=== PATIENT | male | born 2000 | race Caucasian/White ===

== ENCOUNTER 2019-10-20 | Emergency (ER) | payer OTHER ==
[2019-10-20 01:06] VITALS: BP 103/51; PULSE 76; TEMP 98.2; BMI 30.6
--- NOTE | 2019-10-20 02:51 | PDOC ---
*Physical Exam - Vital Signs Last Vital Signs Temp Pulse Resp BP Pulse Ox 98.2 F 76 16 103/51 L 98 10/20/19 00:00 10/20/19 00:00 10/20/19 00:00 10/20/19 00:00 10/20/19 00:00 Medical Decision Making - Medical Decision Making 10/20/19 02:50 Patient seen by the advanced practice provider under my supervision. Ancillary testing reviewed as necessary. I agree with plan as outlined by the advanced practice provider. Discharge - Discharge Information Problems reviewed: Yes Clinical Impression/Diagnosis: Heroin abuse Condition: Fair Disposition: HOME - Follow up/Referral - Patient Discharge Instructions Additional Instructions: you may go to [facility] detox at 8 am for check in. - Post Discharge Activity
--- NOTE | 2019-10-20 03:33 | PDOC ---
History of Present Illness - General Chief Complaint: Substance Abuse Stated Complaint: DETOX Time Seen by Provider: 10/20/19 02:48 History Source: Patient - History of Present Illness Initial Comments: 10/20/19 18-year-old male with history of heroin abuse and benzo here looking for detox. Patient reports that he has been multiple institutions for inpatient detox. Patient has no active withdrawal symptoms. Last used yesterday evening at 6 PM. Patient is here with distribution warehouse manager for potential placement. Past History - Past Medical History Allergies/Adverse Reactions: Allergies Allergy/AdvReac Type Severity Reaction Status Date / Time No Known Allergies Allergy Verified 10/20/19 01:07 - Psycho Social/Smoking Cessation Hx Smoking History: Current some day smoker Information on smoking cessation initiated: No Hx Alcohol Use: Yes *Physical Exam - Vital Signs Last Vital Signs Temp Pulse Resp BP Pulse Ox 98.2 F 76 16 103/51 L 98 10/20/19 00:00 10/20/19 00:00 10/20/19 00:00 10/20/19 00:00 10/20/19 00:00 - Physical Exam General Appearance: Yes: Appropriately Dressed Respiratory/Chest: positive: Lungs Clear, Normal Breath Sounds Cardiovascular: positive: Regular Rhythm, Regular Rate. negative: Tachycardia Musculoskeletal: positive: Other (Track gutierrez on arm no redness or or swelling) Extremity: positive: Normal Capillary Refill, Normal Inspection, Normal Range of Motion Medical Decision Making - Medical Decision Making 10/20/19 06:28 A: heroin abuse P: patient referred to detox in the AM Discharge - Discharge Information Problems reviewed: Yes Clinical Impression/Diagnosis: Heroin abuse Condition: Fair Disposition: HOME - Follow up/Referral - Patient Discharge Instructions Additional Instructions: you may go to [facility] detox at 8 am for check in. - Post Discharge Activity
== END 2019-10-20 04:12 | disposition home or self-care (01) ==
LOC: JER
DX: F11.10 Opioid abuse, uncomplicated (principal); F13.10 Sedative, hypnotic or anxiolytic abuse, uncomplicated
CPT/HCPCS: 99283-25

== ENCOUNTER 2019-10-20 10:11 | Inpatient (IN) | payer OTHER ==
[2019-10-20 10:52] VITALS: BMI 31.4
--- NOTE | 2019-10-20 11:48 | HP ---
COWS - Scale Resting Pulse: 0= [place] 80 or Below Sweatin=Flushed/Facial Moisture Restless Observation: 1= Difficult to Sit Still Pupil Size: 1= Pupils >than Normal Bone or Joint Aches: 1= Mild Discomfort Runny Nose/ Eye Tearin= Runny Nose/Eyes GI Upset > 30mins: 1= Stomach Cramp Tremor Observation: 1= Tremor [place], Not Seen Yawning Observation: 1= 1-2x During Session Anxiety or Irritability: 2=Irritable/Anxious Goose Flesh Skin: 0=Smooth Skin COWS Score: 12 CIWA Score - Admission Criteria OASAS Guidelines: Admission for Medically Managed Detox: Requires at least one of the followin. CIWA greater than 12 2. Seizures within the past 24 hours 3. Delirium tremens within the past 24 hours 4. Hallucinations within the past 24 hours 5. Acute intervention needed for co occurring medical disorder 6. Acute intervention needed for co occurring psychiatric disorder 7. Severe withdrawal that cannot be handled at a lower level of care (continued vomiting, continued diarrhea, abnormal vital signs) requiring intravenous medication and/or fluids 8. Admitting History and Physical - Admission Chief Complaint: " I want to stop using drugs." History of Present Illness: 18 year old male with history of opioid dependence attempted methadone in [facility] last there in 10/10/19. He did rehab at [facility] but then relapsed immediately, re-entered detox at [facility] and s/p discharge from there in 10/16/19. However, he immediately relapsed and started using multiple substances. Heroin: intravenously, 2 bundles per day, started using more than 1 year ago, last used yesterday at 10AM He hasn't overdosed but carries no narcan kit. POMH: None Psurg: None Psych: None Lives with his mother and is on bail for robbery case. He was brought in by his pillowcase cutter who wants it transmitted that he has a rehab termite renewal inspector placement at [facility]. This message will be transmitted to counseling who will coordinate with them upon discharge this time. History Source: Patient Limitations to Obtaining History: No Limitations - Past Surgical History Past Surgical History: Yes: None - Smoking History Smoking history: Current some day smoker Have you smoked in the past 12 months: Yes Aproximately how many cigarettes per day: 20 - Alcohol/Substance Use Hx Alcohol Use: Yes History of Substance Use: reports: Heroin Date of Last Use: 10/11/17 - Social History Usual Living Arrangement: Yes: Alone Do you think of yourself as: Straight/Heterosexual ADL: Independent Occupation: unemployed, elevator repair mechanic History of Recent Travel: No Admission [facility] Allergies/Adverse Reactions: Allergies Allergy/AdvReac Type Severity Reaction Status Date / Time No Known Allergies Allergy Verified 10/20/19 10:52 Exam Limitations: No Limitations - Ebola screening Have you traveled outside of the country in the last 21 days: No Have you had contact with anyone from an Ebola affected area: No Have you been sick,other than usual withdrawal symptoms: No Do you have a fever: No - Review of Systems Constitutional: Chills, Unintentional Wgt. Loss EENT: reports: No Symptoms Reported Respiratory: reports: No Symptoms reported Cardiac: reports: No Symptoms Reported GI: reports: No Symptoms Reported : reports: No Symptoms Reported Musculoskeletal: reports: Muscle Pain Integumentary: reports: No Symptoms Reported Neuro: reports: No Symptoms reported Endocrine: reports: No Symptoms Reported Hematology: reports: No Symptoms Reported Psychiatric: reports: Judgement Intact, Mood/Affect Appropiate, Orientated x3 Other Systems: Reviewed and Negative Patient History - Patient Medical History Hx Asthma: No Hx Chronic Obstructive Pulmonary Disease (COPD): No Hx Cardiac Disorders: No Hx Hypertension: No Hx Seizures: No Hx Diabetes: No Hx Gastrointestinal Disorders: No Hx Genitourinary Disorders: No Hx Sexually Transmitted Disorders: No Hx Renal Disease (ESRD): No Hx Depression: No Hx Suicide Attempt: No Hx Schizophrenia: No - Patient Surgical History Past Surgical History: No Hx Neurologic Surgery: No Hx Cataract Extraction: No Hx Cardiac Surgery: No Hx Lung Surgery: No Hx Breast Surgery: No Hx Breast Biopsy: No Hx Abdominal Surgery: No Hx Appendectomy: No Hx Cholecystectomy: No Hx Genitourinary Surgery: No Hx Section: No Hx Orthopedic Surgery: No Anesthesia Reaction: No - PPD History Previous Implant?: Yes Documented Results: Negative w/o proof Implanted On Prior [facility] Admission?: No Date: 03/12/19 Results: negative PPD to be Administered?: Yes - Smoking Cessation Smoking history: Current some day smoker Have you smoked in the past 12 months: Yes Aproximately how many cigarettes per day: 20 Hx Chewing Tobacco Use: No Initiated information on smoking cessation: Yes 'Breaking Loose' booklet given: 10/20/19 - Substances abused Heroin Substance route: Injection Frequency: Daily Amount used: 20bags Age of first use: 17 Date of last use: 10/19/19 Cocaine Substance route: Injection Frequency: Daily Amount used: 3bags Age of first use: 16 Date of last use: 10/20/19 Admission Physical Exam [facility] - Vital Signs Vital Signs: Vital Signs - 24 hr 10/20/19 10:49 Temperature 98.4 F Pulse Rate 68 Respiratory 18 Rate Blood Pressure 124/68 - Physical General Appearance: Yes: Moderate Distress, Tremorous, Irritable, Sweating, Anxious HEENTM: Yes: EOMI, Hearing grossly Normal, Normal ENT Inspection, Normocephalic , Normal Voice, SHENG, Pharynx Normal, Tm's normal Respiratory: Yes: Chest Non-Tender, Lungs Clear, Normal Breath Sounds, No Respiratory Distress, No Accessory Muscle Use Neck: Yes: No masses,lesions,Nodules, Supple, Trachea in good position Breast: Yes: Within Normal Limits Cardiology: Yes: Regular Rhythm, Regular Rate, S1, S2 Abdominal: Yes: Normal Bowel Sounds, Non Tender, Flat, Soft Genitourinary: Yes: Within Normal Limits Back: Yes: Normal Inspection Musculoskeletal: Yes: full range of Motion, Gait Steady, Pelvis Stable Extremities: Yes: Normal Capillary Refill, Normal Inspection, Normal Range of Motion, Non-Tender Neurological: Yes: sports editor II-XII NML intact, Fully Oriented, Alert, Motor Strength 5/5, Normal Mood/Affect, Normal Response Integumentary: Yes: Normal Color, Warm Lymphatic: Yes: Within Normal Limits - Diagnostic (1) Opioid dependence with withdrawal Current Visit: Yes Status: Acute Cleared for Admission [facility] - Detox or Rehab [facility] Level of Care: Medically Managed Detox Regimen/Protocol: Methadone Claeared for Rehab Admission: No Screened but not Admitted - Documentation of Visit Screened but not Admitted: No Breathalyzer - Breathalyzer Breathalyzer: 0 Urine Drug Screen - Test Device Lot number: [id number] Expiration date: 08/08/21 - Control Is test valid?: Yes - Results Drug screen NEGATIVE: No Urine drug screen results: THC-Marijuana, EDITH-Cocaine, FEN-Fentanyl, MOP-Opiates , MTD-Methadone, BUP-Suboxone Inpatient Rehab Admission - Rehab Decision to Admit Inpatient rehab admission?: No
[2019-10-20] MEDS ORDERED: METHOCARBAMOL 500 MG TABLET PO PRN (11:53)
[2019-10-20] MEDS ORDERED: hydrOXYzine PAMOATE 25 MG CAPSULE (FP) PO PRN (11:53)
[2019-10-20] MEDS ORDERED: MELATONIN 5 MG TABLETS PO PRN (11:53)
[2019-10-20] MEDS ORDERED: IBUPROFEN 400 MG TABLET (FP) PO PRN (11:53)
[2019-10-20] MEDS ORDERED: BISMUTH SUBSALICYLATE 524 MG/30 ML UD PO PRN (11:53)
[2019-10-20] MEDS ORDERED: MAGNESIUM CITRATE 300 ML BOTTLE PO PRN (11:53)
[2019-10-20] MEDS ORDERED: ACETAMINOPHEN 325 MG TABLET (FP) PO PRN ×2 (11:53)
[2019-10-20] MEDS ORDERED: MAG HYDROX/AL HYDROX/SIMETH 30 ML UNIT-DOSE CUP PO PRN (11:53)
[2019-10-20] MEDS ORDERED: cloNIDine HCL 0.1 MG TABLET PO PRN (11:53)
[2019-10-20] MEDS ORDERED: MAGNESIUM HYDROX 2400MG/30ML ORAL SUSPENSION 30 ML CUP PO PRN (11:53)
[2019-10-20] MEDS ORDERED: MENTHOL/PHENOL 1 EACH UD MM PRN (11:53)
--- NOTE | 2019-10-20 12:10 | HP ---
COWS - Scale Resting Pulse: 0= [place] 80 or Below Sweatin=Flushed/Facial Moisture Restless Observation: 1= Difficult to Sit Still Pupil Size: 1= Pupils >than Normal Bone or Joint Aches: 1= Mild Discomfort Runny Nose/ Eye Tearin= Runny Nose/Eyes GI Upset > 30mins: 1= Stomach Cramp Tremor Observation: 1= Tremor [place], Not Seen Yawning Observation: 1= 1-2x During Session Anxiety or Irritability: 2=Irritable/Anxious Goose Flesh Skin: 0=Smooth Skin COWS Score: 12 CIWA Score - Admission Criteria OASAS Guidelines: Admission for Medically Managed Detox: Requires at least one of the followin. CIWA greater than 12 2. Seizures within the past 24 hours 3. Delirium tremens within the past 24 hours 4. Hallucinations within the past 24 hours 5. Acute intervention needed for co occurring medical disorder 6. Acute intervention needed for co occurring psychiatric disorder 7. Severe withdrawal that cannot be handled at a lower level of care (continued vomiting, continued diarrhea, abnormal vital signs) requiring intravenous medication and/or fluids 8. Admitting History and Physical - Past Surgical History Past Surgical History: Yes: None - Smoking History Smoking history: Current some day smoker Have you smoked in the past 12 months: Yes Aproximately how many cigarettes per day: 20 - Alcohol/Substance Use Hx Alcohol Use: Yes History of Substance Use: reports: Heroin Date of Last Use: 10/11/17 - Social History ADL: Independent Occupation: unemployed, service mechanic History of Recent Travel: No Admission [facility] Allergies/Adverse Reactions: Allergies Allergy/AdvReac Type Severity Reaction Status Date / Time No Known Allergies Allergy Verified 10/20/19 10:52 - Ebola screening Have you traveled outside of the country in the last 21 days: No Have you had contact with anyone from an Ebola affected area: No Have you been sick,other than usual withdrawal symptoms: No Do you have a fever: No Patient History - Patient Medical History Hx Asthma: No Hx Chronic Obstructive Pulmonary Disease (COPD): No Hx Cardiac Disorders: No Hx Hypertension: No Hx Seizures: No Hx Diabetes: No Hx Gastrointestinal Disorders: No Hx Genitourinary Disorders: No Hx Sexually Transmitted Disorders: No Hx Renal Disease (ESRD): No Hx Depression: No Hx Suicide Attempt: No Hx Schizophrenia: No - Patient Surgical History Past Surgical History: No Hx Neurologic Surgery: No Hx Cataract Extraction: No Hx Cardiac Surgery: No Hx Lung Surgery: No Hx Breast Surgery: No Hx Breast Biopsy: No Hx Abdominal Surgery: No Hx Appendectomy: No Hx Cholecystectomy: No Hx Genitourinary Surgery: No Hx Section: No Hx Orthopedic Surgery: No Anesthesia Reaction: No - PPD History Previous Implant?: Yes Documented Results: Negative w/o proof Implanted On Prior [facility] Admission?: No Date: 03/12/19 Results: negative - Smoking Cessation Smoking history: Current some day smoker Have you smoked in the past 12 months: Yes Aproximately how many cigarettes per day: 20 Hx Chewing Tobacco Use: No Initiated information on smoking cessation: Yes - Substances abused Heroin Substance route: Injection Frequency: Daily Amount used: 20bags Age of first use: 17 Date of last use: 10/19/19 Cocaine Substance route: Injection Frequency: Daily Amount used: 3bags Age of first use: 16 Date of last use: 10/20/19 Admission Physical Exam [facility] - Vital Signs Vital Signs: Vital Signs - 24 hr 10/20/19 10:49 Temperature 98.4 F Pulse Rate 68 Respiratory 18 Rate Blood Pressure 124/68 Breathalyzer - Breathalyzer Breathalyzer: 0 Urine Drug Screen - Test Device Lot number: [id number] Expiration date: 08/08/21 - Control Is test valid?: Yes - Results Drug screen NEGATIVE: No Urine drug screen results: THC-Marijuana, EDITH-Cocaine, FEN-Fentanyl, MOP-Opiates , MTD-Methadone, BUP-Suboxone
[2019-10-20] MEDS ORDERED: METHADONE HCL 10 MG TABLET (FOR DETOX USE ONLY) PO ONE (12:30)
[2019-10-20 20:34] LABS: HEMATOCRIT 37.5 % (35.4-49); HEMOGLOBIN 12.5 GM/dL (11.7-16.9); MCH 29.9 pg (25.7-33.7); MCHC 33.2 g/dl (32.0-35.9); MEAN CELL VOLUME 89.9 fl (80-96); MEAN PLT VOLUME 9.4 fl (7.5-11.1); PLATELET COUNT 246 K/MM3 (134-434); RBC 4.17 M/mm3 (4.00-5.60); RDW 14.1 % (11.9-15.9); WHITE BLOOD COUNT 4.7 K/mm3 (4.0-10.0)
[2019-10-20 20:53] LABS: ALBUMIN 3.8 g/dl (3.4-5.0); BILIRUBIN,TOTAL 0.2 mg/dL (0.2-1); BLOOD UREA NITROGEN 14.4 mg/dL (7-18); CALCIUM 9.4 mg/dL (8.5-10.1); CREATININE 0.9 mg/dL (0.55-1.3); POTASSIUM 4.8 mmol/L (3.5-5.1); TOT PROT 7.3 g/dl (6.4-8.2)
[2019-10-20] MEDS ORDERED: THIAMINE HCL 100 MG TABLET (FP) PO SCH (22:00)
--- NOTE | 2019-10-21 09:12 | PN ---
S COWS - Scale Resting Pulse: 0= [place] 80 or Below Sweatin= No chills or Flushing Restless Observation: 1= Difficult to Sit Still Pupil Size: 1= Pupils >than Normal Bone or Joint Aches: 1= Mild Discomfort Runny Nose/ Eye Tearin= Nasal Congestion GI Upset > 30mins: 1= Stomach Cramp Tremor Observation of Outstretched Hands: 2= Slight Tremor Visible Yawning Observation: 1= 1-2x During Session Anxiety or Irritability: 2=Irritable/Anxious Goose Flesh Skin: 0=Smooth Skin COWS Score: 10 [facility] Progress Note (SOAP) Subjective: alert,irritable,anxious,interrupted sleep,tremor,pain in the body and back Objective: 10/21/19 09:11 Vital Signs Temperature 97.8 F 10/20/19 20:35 Pulse Rate 62 10/20/19 20:35 Respiratory Rate 18 10/21/19 03:40 Blood Pressure 118/56 L 10/20/19 20:35 O2 Sat by Pulse Oximetry (%) Laboratory Last Values WBC 4.7 K/mm3 (4.0-10.0) 10/20/19 12:10 RBC 4.17 M/mm3 (4.00-5.60) 10/20/19 12:10 Hgb 12.5 GM/dL (11.7-16.9) 10/20/19 12:10 Hct 37.5 % (35.4-49) 10/20/19 12:10 MCV 89.9 fl (80-96) 10/20/19 12:10 MCH 29.9 pg (25.7-33.7) 10/20/19 12:10 MCHC 33.2 g/dl (32.0-35.9) 10/20/19 12:10 RDW 14.1 % (11.9-15.9) 10/20/19 12:10 Plt Count 246 K/MM3 (134-434) 10/20/19 12:10 MPV 9.4 fl (7.5-11.1) 10/20/19 12:10 Sodium 140 mmol/L (136-145) 10/20/19 12:10 Potassium 4.8 mmol/L (3.5-5.1) 10/20/19 12:10 Chloride 106 mmol/L (98-107) 10/20/19 12:10 Carbon Dioxide 30 mmol/L (21-32) 10/20/19 12:10 Anion Gap 4 MMOL/L (8-16) L 10/20/19 12:10 BUN 14.4 mg/dL (7-18) 10/20/19 12:10 Creatinine 0.9 mg/dL (0.55-1.3) 10/20/19 12:10 Est GFR (CKD-EPI)AfAm 142.00 10/20/19 12:10 Est GFR (CKD-EPI)NonAf 122.52 10/20/19 12:10 Random Glucose 85 mg/dL (74-106) 10/20/19 12:10 Calcium 9.4 mg/dL (8.5-10.1) 10/20/19 12:10 Total Bilirubin 0.2 mg/dL (0.2-1) 10/20/19 12:10 AST 19 U/L (15-37) 10/20/19 12:10 ALT 17 U/L (13-61) 10/20/19 12:10 Alkaline Phosphatase 92 U/L (45-117) 10/20/19 12:10 Total Protein 7.3 g/dl (6.4-8.2) 10/20/19 12:10 Albumin 3.8 g/dl (3.4-5.0) 10/20/19 12:10 RPR Titer Nonreactive (NONREACTIVE) 10/20/19 12:10 Assessment: 10/21/19 09:12 withdrawal symptom Plan: continue detox methadone regimen
--- NOTE | 2019-10-21 09:17 | DS ---
[facility] Detox Discharge Summary Admission Date: 10/20/19 Discharge Date: 10/21/19 - History Present History: Opioid Dependence Additional Comments: alert,oriented x3 ambulation on the unit lung clear no abdominal pain patient did not want to complete treatment,high risk of relapsing explained, signed release ama, advise to call 911 if not feeling well discharge time spending 30 mins - Physical Exam Results Vital Signs: Vital Signs Temperature 97.8 F 10/20/19 20:35 Pulse Rate 62 10/20/19 20:35 Respiratory Rate 18 10/21/19 03:40 Blood Pressure 118/56 L 10/20/19 20:35 O2 Sat by Pulse Oximetry (%) Pertinent Admission Physical Exam Findings: withdrawal signs and symptom Laboratory Last Values WBC 4.7 K/mm3 (4.0-10.0) 10/20/19 12:10 RBC 4.17 M/mm3 (4.00-5.60) 10/20/19 12:10 Hgb 12.5 GM/dL (11.7-16.9) 10/20/19 12:10 Hct 37.5 % (35.4-49) 10/20/19 12:10 MCV 89.9 fl (80-96) 10/20/19 12:10 MCH 29.9 pg (25.7-33.7) 10/20/19 12:10 MCHC 33.2 g/dl (32.0-35.9) 10/20/19 12:10 RDW 14.1 % (11.9-15.9) 10/20/19 12:10 Plt Count 246 K/MM3 (134-434) 10/20/19 12:10 MPV 9.4 fl (7.5-11.1) 10/20/19 12:10 Sodium 140 mmol/L (136-145) 10/20/19 12:10 Potassium 4.8 mmol/L (3.5-5.1) 10/20/19 12:10 Chloride 106 mmol/L (98-107) 10/20/19 12:10 Carbon Dioxide 30 mmol/L (21-32) 10/20/19 12:10 Anion Gap 4 MMOL/L (8-16) L 10/20/19 12:10 BUN 14.4 mg/dL (7-18) 10/20/19 12:10 Creatinine 0.9 mg/dL (0.55-1.3) 10/20/19 12:10 Est GFR (CKD-EPI)AfAm 142.00 10/20/19 12:10 Est GFR (CKD-EPI)NonAf 122.52 10/20/19 12:10 Random Glucose 85 mg/dL (74-106) 10/20/19 12:10 Calcium 9.4 mg/dL (8.5-10.1) 10/20/19 12:10 Total Bilirubin 0.2 mg/dL (0.2-1) 10/20/19 12:10 AST 19 U/L (15-37) 10/20/19 12:10 ALT 17 U/L (13-61) 10/20/19 12:10 Alkaline Phosphatase 92 U/L (45-117) 10/20/19 12:10 Total Protein 7.3 g/dl (6.4-8.2) 10/20/19 12:10 Albumin 3.8 g/dl (3.4-5.0) 10/20/19 12:10 RPR Titer Nonreactive (NONREACTIVE) 10/20/19 12:10 - Medication Discharge Medications: Ambulatory Orders NK [No Known Home Medication] 10/20/19 - Diagnosis (1) Opioid dependence with withdrawal Current Visit: Yes Status: Acute - AMA Did Patient Leave Against Medical Advice: Yes
[2019-10-21] MEDS ORDERED: PRENATAL VITAMINS W/ FOLIC ACID TABLET (FP) PO SCH (10:00)
[2019-10-21] MEDS ORDERED: METHADONE (DETOX) 20 MG, METHADONE (DETOX) 5 MG PO ONE (10:00)
[2019-10-21 10:01] VITALS: BP 133/90; PULSE 50; TEMP 99
[2019-10-22] MEDS ORDERED: METHADONE HCL 10 MG TABLET (FOR DETOX USE ONLY) PO ONE (10:00)
[2019-10-23] MEDS ORDERED: METHADONE (DETOX) 10 MG, METHADONE (DETOX) 5 MG PO ONE (10:00)
[2019-10-24] MEDS ORDERED: METHADONE HCL 10 MG TABLET (FOR DETOX USE ONLY) PO ONE (10:00)
[2019-10-25] MEDS ORDERED: METHADONE HCL 5 MG TABLET (FOR DETOX USE ONLY) PO ONE (06:00)
== END 2019-10-21 09:36 | disposition left against medical advice (07) | DRG 770 ==
LOC: YASAS 10:11 → Y6N 12:18
PROVIDERS: ADMIT Allergy & Immunology; ATTEND Allergy & Immunology
PROC: HZ2ZZZZ Detoxification Services for Substance Abuse Treatment (ICD-10-PCS; principal; 2019-10-20)
DX: F11.23 Opioid dependence with withdrawal (principal); F14.20 Cocaine dependence, uncomplicated; F17.210 Nicotine dependence, cigarettes, uncomplicated
CPT/HCPCS: 36415; 80053; 85027; 86593; J0735